=== PATIENT | male | born 1945 | race Two or more races ===

== ENCOUNTER 2022-06-16 17:14 | Inpatient (IN) | payer MEDICARE ==
[~2022-06-16] VITALS: Ht 172.7 cm; Wt 79.8 kg
--- NOTE | 2022-06-16 17:35 | NUR ---
[id number] FROM HOME, GENERALIZED WEAKNESS X 2 DAYS, DIZZINESS STANDING UP AND WALKING AROUND. 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 PLACED ON BED, AAOX4, BREATHING EVEN AND UNLABORED SATURATING AT 98%RA
--- NOTE | 2022-06-16 17:43 | NUR ---
AT BED SIDE
--- NOTE | 2022-06-16 17:56 | NUR ---
BLOOD DRAWN AND SENT TO LAB
--- NOTE | 2022-06-16 18:13 | NUR ---
SWAB FOR COVID19 SENT TO LAB
[2022-06-16 18:30] LABS: BASOPHILS % (AUTO) 0.2 % (0.0-2.0); EOSINOPHILS % (AUTO) 0.2 % (0.0-6.0); LYMPHOCYTES # (AUTO) 1.2 K/uL (0.8-4.8); LYMPHOCYTES % (AUTO) 10.3 % (20.0-44.0); MEAN CORPUSCULAR HGB CONC 33 g/dl (31.0-36.0); MEAN CORPUSCULAR VOLUME 98 fL (80-96); MONOCYTES # (AUTO) 0.6 K/uL (0.1-1.30); MONOCYTES % (AUTO) 5.3 % (2.0-12.0); NEUTROPHILS # (AUTO) 9.9 K/uL (1.8-8.9); PLATELET COUNT (AUTO) 135 K/uL (150-450); WHITE BLOOD COUNT (AUTO) 11.8 K/uL (4.3-11.0)
--- NOTE | 2022-06-16 18:33 | NUR ---
EBENEZER (SISTER) [phone]. Addendum: 06/16/22 at 1834 by CHARLENE EBENEZER (SISTER) CP# [phone].
[2022-06-16] MEDS ORDERED: METO25TA3 PO (18:38)
[2022-06-16] MEDS ORDERED: ASPI-1169 PO (18:38)
[2022-06-16] MEDS ORDERED: SIMV-49 PO (18:38)
[2022-06-16] MEDS ORDERED: LISI10TA29 PO (18:38)
[2022-06-16 18:42] LABS: RED BLOOD CELL COUNT(AUTO) 1.98 MIL/uL (4.5-6.0)
[2022-06-16 18:43] LABS: HEMOGLOBIN 6.4 g/dL (13.5-17.5)
[2022-06-16 18:44] LABS: HEMATOCRIT 19 % (39-51)
[2022-06-16] MEDS ORDERED: LEVE500T9 PO (18:53)
[2022-06-16] MEDS ORDERED: HYDR-4076 PO (18:53)
[2022-06-16 19:02] LABS: CARBON DIOXIDE 23 mmol/L (21-32); CHLORIDE 109 mmol/L (98-107); CREATININE 1.3 mg/dL (0.6-1.3); GLUCOSE 219 mg/dL (74-106); POTASSIUM 3.8 mmol/L (3.5-5.1); SODIUM SERUM 140 mmol/L (136-145); UREA NITROGEN, BLOOD 58 mg/dL (7-18)
[2022-06-16] MEDS ORDERED: IOHEXOL-300 100 ML VIAL IV ONE (19:25)
[2022-06-16 19:48] LABS: IRON, SERUM 153 ug/dl (50-175); TOTAL IRON BINDING CAPACITY 290 ug/dl (250-450)
[2022-06-16 20:02] LABS: FERRITIN 142 ng/mL (8-388)
--- NOTE | 2022-06-16 20:29 | NUR ---
PT WILL BE GOING TO 325-2
[2022-06-16] MEDS ORDERED: PANTOPRAZOLE 80 MG in IV NS 0.9% 500 ML IV ONE (20:30)
[2022-06-16] MEDS ORDERED: PANTOPRAZOLE 40 MG VIAL ONE (20:38)
[2022-06-16 20:54] LABS: LYMPHOCYTES % (MANUAL) 11 % (16-48); MONOCYTES % (MANUAL) 4 % (0-11.0); NEUTROPHILS % (MANUAL) 85 (42-76)
--- NOTE | 2022-06-16 21:17 | NUR ---
REPORT GIVEN TO EMELIA NDIAYE ROOM 325-2 FOR REYNALDO
[2022-06-16 21:18] LABS: BILIRUBIN,DIRECT 0.1 mg/dL (0.0-0.2); BILIRUBIN,TOTAL 0.2 mg/dL (0.2-1.0); TOTAL PROTEIN, SERUM 5.5 g/dL (6.4-8.2)
--- NOTE | 2022-06-16 21:50 | NUR ---
FLIGHT RADIO OFFICERDOORSHAKER NOTE PT TRANSPORTED VIA GURNEY TO UNIT AT THIS TIME. PT FROM HOME ADMITTED TO TELE FROM ER UNDER DR DE ANDA FOR ADMITTING DX OF GI BLEED AND ANEMIA. A/O X4 AND ABLE TO MAKE NEEDS KNOWN. PT STABLE ON ROOM AIR. NO SOB OR S/S OF RESPIRATORY DISTRESS. BREATHING EVEN AND UNLABORED. PT DENIES PAIN OF DISCOMFORT AT THIS TIME. IV ACCESS R HAND 18 GAUGE, INTACT AND PATENT. SKIN IS INTACT. PT IS AMBULATORY WITH ASSIST. WAITING FOR BLOOD TO BE READY FOR BLOOD TRANSFUSION. ORIENTED TO UNIT, STAFF, AND ROOM. PT BELONGINGS ACCOUNTED FOR AND BELONGINGS LIST SIGNED. SAFETY PRECAUTIONS IN PLACE. BED IN LOWEST LOCKED POSITION, HOB ELEVATED, SIDE RAILS UP X2, AND CALL LIGHT AND TABLE WITHIN REACH. ALL NEEDS MET AT THIS TIME.
[2022-06-16] MEDS ORDERED: ZOLPIDEM TARTRATE 5 MG TABLET PO PRN (23:00)
[2022-06-16] MEDS ORDERED: MAGNESIUM HYDROXIDE 30 ML UDC PO PRN (23:00)
[2022-06-16] MEDS ORDERED: ACETAMINOPHEN 325 MG TABLET PO PRN (23:00)
[2022-06-16] MEDS ORDERED: Z GUARD REMEDY 4 OZ OINT TP PRN (23:00)
[2022-06-16] MEDS ORDERED: MORPHINE SULFATE INJ 2 MG/ML DISP.SYRIN IV PRN (23:00)
[2022-06-16] MEDS ORDERED: ONDANSETRON HCL/PF 4 MG/2 ML VIAL IVP PRN (23:00)
[2022-06-16] MEDS ORDERED: MAG HYDROX/AL HYDROX/SIMETH 30 ML UDC PO PRN (23:00)
[2022-06-16] MEDS: IV D5/0.45 NACL 1,000 ML IV PRN (23:39)
[2022-06-17] VITALS (14 sets, daily range): BP systolic 88–112; BP diastolic 48–73
[2022-06-17] MEDS ORDERED: IV NS 0.9% 500 ML BAG IV ONE (01:30)
--- NOTE | 2022-06-17 05:10 | NUR ---
RN NOTE PT STARTED ON BLOOD TRANSFUSION OF 1 UNIT PRBC AT THIS TIME. PT EDUCATION PROVIDED ON RISKS AND BENEFITS OF BLOOD TRANSFUSION. BLOOD CONSENT VERIFIED. PRE TRANSFUSION VS BP 88/57 HR 82 R 20 TEMP 98.3 AND O2 SAT 97% ON ROOM AIR. PICKED UP FROM LAB AND VERIFIED WITH SUPERVISOR FEED HOUSE. NO LEAKAGE, CLOTS, OR DISCOLORATION NOTED. BLOOD VERIFIED AT PTS BEDSIDE WITH ZELDA DURBIN PRIOR TO STARTING. WILL CONTINUE TO MONITOR AND REASSESS FOR ANY TRANSFUSION REACTIONS.
--- NOTE | 2022-06-17 06:45 | NUR ---
HOROLOGIST CLOSING NOTE PT AWAKE IN BED. A/O X4 AND ABLE TO MAKE NEEDS KNOWN. PT STABLE ON ROOM AIR. NO SOB OR S/S OF RESPIRATORY DISTRESS. BREATHING EVEN AND UNLABORED. PT DENIES PAIN OF DISCOMFORT AT THIS TIME. IV ACCESS R HAND 18 GAUGE, INTACT AND PATENT, RUNNING 1 BAG OF PRBC, AND LAC 18 GAUGE RUNNING PROTONIX. ALL DUE MEDS GIVEN ORDERED. SAFETY PRECAUTIONS IN PLACE. BED IN LOWEST LOCKED POSITION, HOB ELEVATED, SIDE RAILS UP X2, AND CALL LIGHT AND TABLE WITHIN REACH. ALL NEEDS MET AT THIS TIME AND WILL ENDORSE TO ONCOMING NURSE FOR REYNALDO.
--- NOTE | 2022-06-17 07:05 | NUR ---
SUPERVISOR PROPELLANT CHARGE LOADING OPENING NOTES RECEIVED PATIENT RESTING IN BED, A/Ox4. ON ROOM AIR, NO S/S OF RESPIRATORY DISTRESS. PATIENT IS ON TELE MONITORING SHOWING SR 80 HR, NO S/S OF CARDIAC DISTRESS OR DISCOMFORT NOTED. PATIENT HAS IV ACCESS L HAND #18G RUNNING PRBC AND L AC RUNNING D5 1/2 NS @ 75 ML/HR, INTACT AND PATENT. PATIENT IS CONTINENT, USES URINAL AND CAN AMBULATE WITH SUPERVISION TO THE BATHROOM. SKIN IS INTACT. SAFETY MEASURES IN PLACE: BED LOCKED AND IN LOWEST POSITION, SIDE RAILS UP x2, CALL LIGHT WITHIN REACH, AND HOB ELEVATED. WILL CONTINUE TO MONITOR.
[2022-06-17 08:55] LABS: BASOPHILS % (AUTO) 0.4 % (0.0-2.0); EOSINOPHILS % (AUTO) 0.6 % (0.0-6.0); LYMPHOCYTES # (AUTO) 2.1 K/uL (0.8-4.8); MEAN CORPUSCULAR HGB CONC 34 g/dl (31.0-36.0); MEAN CORPUSCULAR VOLUME 97 fL (80-96); MONOCYTES # (AUTO) 0.8 K/uL (0.1-1.30); MONOCYTES % (AUTO) 7.3 % (2.0-12.0); NEUTROPHILS # (AUTO) 7.7 K/uL (1.8-8.9); NEUTROPHILS % (AUTO) 71.7 % (43.0-81.0); PLATELET COUNT (AUTO) 113 K/uL (150-450); WHITE BLOOD COUNT (AUTO) 10.8 K/uL (4.3-11.0)
[2022-06-17 09:14] LABS: ALBUMIN 2.7 g/dL (3.4-5.0); BILIRUBIN,DIRECT 0.1 mg/dL (0.0-0.2); BILIRUBIN,TOTAL 0.2 mg/dL (0.2-1.0); CALCIUM, SERUM 7.5 mg/dL (8.5-10.1); CREATININE 1.3 mg/dL (0.6-1.3); MAGNESIUM 2.2 mg/dL (1.8-2.4); PHOSPHORUS 3.3 mg/dL (2.5-4.9); POTASSIUM 3.9 mmol/L (3.5-5.1); TOTAL PROTEIN, SERUM 5.1 g/dL (6.4-8.2)
[2022-06-17 09:37] LABS: HEMATOCRIT 19 % (39-51); HEMOGLOBIN 6.4 g/dL (13.5-17.5); RED BLOOD CELL COUNT(AUTO) 1.92 MIL/uL (4.5-6.0)
[2022-06-17 11:18] LABS: LYMPHOCYTES % (MANUAL) 14 % (16-48); MONOCYTES % (MANUAL) 3 % (0-11.0); NEUTROPHILS % (MANUAL) 83 (42-76)
--- NOTE | 2022-06-17 12:30 | NUR ---
RN NOTES PATIENT COMPLETED 2 UNITS OF BLOOD TRANSFUSION, NO ADVERSE AFFECTS NOTED AND VITALS STABLE THROUGHOUT AND AFTER. WILL CONTINUE TO MONITOR.
[2022-06-17] MEDS: LEVETIRACETAM (250 MG) 250 MG TABLET PO SCH ×2 (12:48→20:41)
[2022-06-17 15:58] LABS: BASOPHILS % (AUTO) 0.4 % (0.0-2.0); EOSINOPHILS % (AUTO) 0.7 % (0.0-6.0); HEMATOCRIT 25 % (39-51); HEMOGLOBIN 8.4 g/dL (13.5-17.5); LYMPHOCYTES # (AUTO) 1.8 K/uL (0.8-4.8); LYMPHOCYTES % (AUTO) 15.1 % (20.0-44.0); MEAN CORPUSCULAR HGB CONC 33 g/dl (31.0-36.0); MEAN CORPUSCULAR VOLUME 98 fL (80-96); MONOCYTES # (AUTO) 0.8 K/uL (0.1-1.30); MONOCYTES % (AUTO) 7.1 % (2.0-12.0); NEUTROPHILS # (AUTO) 8.9 K/uL (1.8-8.9); NEUTROPHILS % (AUTO) 76.7 % (43.0-81.0); PLATELET COUNT (AUTO) 115 K/uL (150-450); RED BLOOD CELL COUNT(AUTO) 2.58 MIL/uL (4.5-6.0); WHITE BLOOD COUNT (AUTO) 11.6 K/uL (4.3-11.0)
--- NOTE | 2022-06-17 18:40 | NUR ---
DAIRY FARM OPERATOR CLOSING NOTES PATIENT RESTING IN BED, A/Ox4. ON ROOM AIR, STABLE NO S/S OF RESPIRATORY DISTRESS. PATIENT IS ON TELE MONITORING SHOWING SR 80 HR, NO S/S OF CARDIAC DISTRESS OR DISCOMFORT NOTED. PATIENT HAS IV ACCESS L HAND #SL AND L AC RUNNING D5 1/2 NS @ 75 ML/HR, INTACT AND PATENT. PATIENT IS CONTINENT, USES URINAL AND CAN AMBULATE WITH SUPERVISION TO THE BATHROOM. SKIN IS INTACT. ALL PRESCRIBED MEDICATION ADMINISTERED. SAFETY MEASURES MAINTAINED: BED LOCKED AND IN LOWEST POSITION, SIDE RAILS UP x2, CALL LIGHT WITHIN REACH, AND HOB ELEVATED. WILL ENDORSE TO NEXT SHIFT ANY REYNALDO.
--- NOTE | 2022-06-17 19:27 | NUR ---
CASING WRINGER OPERATOR OPENING NOTE RECEIVED PT AWAKE IN BED. SISTER EBENEZER AT BEDSIDE. A/O X4 AND ABLE TO MAKE NEEDS KNOWN. PT STABLE ON ROOM AIR. NO SOB OR S/S OF RESPIRATORY DISTRESS. BREATHING EVEN AND UNLABORED. PT DENIES PAIN OF DISCOMFORT AT THIS TIME. IV ACCESS R HAND 18 GAUGE, INTACT AND PATENT, RUNNING D5 1/2 NS @ 75 ML/HR, AND LAC 18 GAUGE SL. SAFETY PRECAUTIONS IN PLACE. BED IN LOWEST LOCKED POSITION, HOB ELEVATED, SIDE RAILS UP X2, AND CALL LIGHT AND TABLE WITHIN REACH. ALL NEEDS MET AT THIS TIME.
[2022-06-18] VITALS: BP 100/63
[2022-06-18 04:00] VITALS: BP 137/71
[2022-06-18 06:32] LABS: BASOPHILS % (AUTO) 0.4 % (0.0-2.0); EOSINOPHILS % (AUTO) 2.2 % (0.0-6.0); HEMATOCRIT 22 % (39-51); HEMOGLOBIN 7.5 g/dL (13.5-17.5); LYMPHOCYTES # (AUTO) 2.3 K/uL (0.8-4.8); LYMPHOCYTES % (AUTO) 24.8 % (20.0-44.0); MEAN CORPUSCULAR HGB CONC 34 g/dl (31.0-36.0); MEAN CORPUSCULAR VOLUME 97 fL (80-96); MONOCYTES # (AUTO) 0.9 K/uL (0.1-1.30); MONOCYTES % (AUTO) 9.8 % (2.0-12.0); NEUTROPHILS # (AUTO) 5.8 K/uL (1.8-8.9); NEUTROPHILS % (AUTO) 62.8 % (43.0-81.0); PLATELET COUNT (AUTO) 108 K/uL (150-450); RED BLOOD CELL COUNT(AUTO) 2.26 MIL/uL (4.5-6.0); WHITE BLOOD COUNT (AUTO) 9.3 K/uL (4.3-11.0)
--- NOTE | 2022-06-18 06:35 | NUR ---
DIRECT SUPPORT STAFF CLOSING NOTE PT AWAKE IN BED. SISTER EBENEZER AT BEDSIDE. A/O X4 AND ABLE TO MAKE NEEDS KNOWN. PERIODS OF FORGETFULNESS, NEEDED FREQUENT REORIENTATION. PT STABLE ON ROOM AIR. NO SOB OR S/S OF RESPIRATORY DISTRESS. BREATHING EVEN AND UNLABORED. PT DENIES PAIN OF DISCOMFORT AT THIS TIME. IV ACCESS R HAND 18 GAUGE, INTACT AND PATENT, RUNNING D5 1/2 NS @ 75 ML/HR, AND LAC 18 GAUGE SL. ALL DUE MEDS GIVEN ORDERED. SAFETY PRECAUTIONS IN PLACE AT ALL TIMES. BED IN LOWEST LOCKED POSITION, HOB ELEVATED, SIDE RAILS UP X2, AND CALL LIGHT AND TABLE WITHIN REACH. ALL NEEDS MET AT THIS TIME AND WILL ENDORSE TO ONCOMING NURSE FOR REYNALDO.
[2022-06-18 06:54] LABS: CALCIUM, SERUM 7.9 mg/dL (8.5-10.1); CHLORIDE 111 mmol/L (98-107); CREATININE 1.1 mg/dL (0.6-1.3); GLUCOSE 129 mg/dL (74-106); MAGNESIUM 2.2 mg/dL (1.8-2.4); PHOSPHORUS 3.4 mg/dL (2.5-4.9); SODIUM SERUM 142 mmol/L (136-145); UREA NITROGEN, BLOOD 26 mg/dL (7-18)
[2022-06-18 07:09] LABS: CARBON DIOXIDE 25 mmol/L (21-32)
--- NOTE | 2022-06-18 07:30 | NUR ---
MARKETING COPYWRITER OPENING NOTES: RECEIVED PATIENT IN BED, AWAKE. ALERT ANAD ORIENTED X 4 AND WITH EPISODES OF FORGETFULLNESS. NEEDS FREQUENT REORIENTATION. NO SOB OR CARDIAC DISTRESS NOTED, ON ROOM AIR AND TOLERATING WELL. PALE IN APPEARANCE NOTED. PATIENT JUST REMOVED HIS IV ACCESS, WITH D5 NS @75ML/HR. SAFETY PRECAUTIONS MAINTAINED: BED LOCKED AND IN LOWEST POSITION. SIDE RAILS UP X2, BED ALARM ON. CALL LIGHT IN EASY REACH FOR HELP. WILL MONITOR PATIENT ACCORDINGLY.
--- NOTE | 2022-06-18 07:35 | NUR ---
RN NOTES: INSERTED IV ACCESS ON LFA g20 INFUSING D5 1/2 NS @75ML/HR WELL. PATIENT TOLERATED WELL.
--- NOTE | 2022-06-18 07:42 | NUR ---
RN NOTES: SEEN AND EXAMINED BY DR ALLEN, WITH NEW ORDERS MADE: CLEAR LIQUIDS STARTING NOW, START GOLYTELY, FOR EGD/COLONOSCOPY TOMORROW, NPO POST MIDNIGHT. ORDERS NOTED ADN CARRIED OUT.
[2022-06-18 08:00] VITALS: BP 99/55
[2022-06-18] MEDS: LEVETIRACETAM (250 MG) 250 MG TABLET PO SCH ×2 (08:47→21:02)
[2022-06-18] MEDS: SIMVASTATIN 20 MG TABLET PO SCH (08:47)
[2022-06-18] MEDS ORDERED: SENNOSIDES/DOCUSATE SODIUM 1 TAB TABLET PO ONE ×2 (09:00→21:00)
[2022-06-18 12:00] VITALS: BP 100/60
[2022-06-18] MEDS ORDERED: PEG 3350/NA SULF,BICARB,CL/KCL 4,000 ML BOTTLE PO SCH (12:00)
[2022-06-18 16:00] VITALS: BP 102/61
--- NOTE | 2022-06-18 17:20 | NUR ---
RN NOTES: PATIENT REQUESTED TO HAVE 2 TABS OF SENNA AT HS TOGETHER WITH ROSY, DR SALGADO MADE AWARE AND OKAY TO HAVE SENNA 2 TABS AT HS. ORDERS NOTED AND CARRIED OUT.
--- NOTE | 2022-06-18 18:57 | NUR ---
JUVENILE CORRECTIONS OFFICER CLOSING NOTES: PATIENT IN BED, AWAKE. ALERT AND ORIENTED X 4 AND WITH EPISODES OF FORGETFULNESS. NEEDS FREQUENT REORIENTATION. NO SOB OR CARDIAC DISTRESS NOTED, ON ROOM AIR AND TOLERATING WELL. PALE IN APPEARANCE NOTED. ON LOGISTICS SOLUTION MANAGER WITH CURRENT READING OF SR AND SR 80'S BPM. ON BOWEL PREP FOR COLONOSCOPY/EGD IN AM. PATIENT NOTED WITH IV ACCESS WITH D5 NS @75ML/HR. SAFETY PRECAUTIONS MAINTAINED: BED LOCKED AND IN LOWEST POSITION. SIDE RAILS UP X2, BED ALARM ON. ENDORSED TO INSULATION CUPOLA OPERATOR FOR REYNALDO.
[2022-06-18 20:00] VITALS: BP 100/60
--- NOTE | 2022-06-18 21:50 | NUR ---
RN REYNALDO NOTE PATIENT IN BED, AWAKE. A/O X 4 ABLE TO MAKE NEEDS KNOWN. PATIENT TO BE NPO AFTER MN FOR COLONOSCOPY. PER PATIENT, HE NO LONGER WANTS TO DRINK THE GOLYTLEY. PATIENT STILL HAS REMAINING 1/3 OF THE BOTTLE. PATIENT STATES "THEY CAN DRINK IT THEMSELVES, I'M NOT DRINKING ANYMORE OF THAT NASTY WATER". WILL NOTIFY . LFA 20 G, PATENT AND INTACT. D5 1/2 NS NOT ON AT THIS TIME PER PATIENT'S REQUEST. SAFETY MEASURES IN PLACE: BED LOCKED AND IN LOWEST POSITION, CALL LIGHT WITHIN REACH, SIDE RAILS UP. WILL MONITOR PATIENT CLOSELY
--- NOTE | 2022-06-18 22:48 | NUR ---
RN NOTE NOTIFIED DR. ALLEN RE PATIENT REFUSING GOLYTLEY. PER MD "I WILL NOT DO THE PROCEDURE IF HE DOES NOT DRINK THE GOLYTLEY AND IF HE IS NOT HAVE CLEAR BOWELS". INFORMED PATIENT REGARDING WHAT MD SAID, PATIENT STATES THAT "THIS IS ONLY HOW MUCH MY BODY CAN TAKE, AND I'M NOT DRINKING ANYMORE I ALREADY DRANK SO MUCH". PATIENT CONTINUES TO HAVE BOWEL MOVEMENTS THAT IS LIGUID AND DARK, NO FORMED STOOL.S.
[2022-06-19 08:00] VITALS: BP 113/66
--- NOTE | 2022-06-19 08:22 | NUR ---
INSIDE SALES ACCOUNT REPRESENTATIVE OPENING NOTE Patient in bed, awake. A/O x 4, able to make needs known; forgetful at times. On room air, breathing evenly and unlabored. No SOB or s/s of distress noted. IV access on RFA #20 infusing D5 1/2 NS at 75 ml/hr. On tele monitoring showing SR, HR on the 70's-80's. Safety precautions in place: bed in low, locked position siderails up x 2, call light within reach. Will continue to monitor.
[2022-06-19] MEDS: SIMVASTATIN 20 MG TABLET PO SCH (10:12)
[2022-06-19] MEDS: LEVETIRACETAM (250 MG) 250 MG TABLET PO SCH ×2 (10:12→21:43)
--- NOTE | 2022-06-19 10:45 | NUR ---
RN TESFAYE Chacon from lab called, patient's blood culture is positive for gram (+) cocci. Glenda Sherwood NP made aware.
[2022-06-19] MEDS: IV D5/0.45 NACL 1,000 ML IV PRN (11:44)
[2022-06-19 12:00] VITALS: BP 97/54
[2022-06-19 13:57] LABS: BASOPHILS % (AUTO) 0.5 % (0.0-2.0); EOSINOPHILS % (AUTO) 1.2 % (0.0-6.0); HEMATOCRIT 22 % (39-51); HEMOGLOBIN 7.4 g/dL (13.5-17.5); LYMPHOCYTES # (AUTO) 1.4 K/uL (0.8-4.8); LYMPHOCYTES % (AUTO) 22.5 % (20.0-44.0); MEAN CORPUSCULAR HGB CONC 34 g/dl (31.0-36.0); MEAN CORPUSCULAR VOLUME 98 fL (80-96); MONOCYTES # (AUTO) 0.6 K/uL (0.1-1.30); MONOCYTES % (AUTO) 9.7 % (2.0-12.0); NEUTROPHILS # (AUTO) 4.1 K/uL (1.8-8.9); NEUTROPHILS % (AUTO) 66.1 % (43.0-81.0); PLATELET COUNT (AUTO) 130 K/uL (150-450); RED BLOOD CELL COUNT(AUTO) 2.22 MIL/uL (4.5-6.0); WHITE BLOOD COUNT (AUTO) 6.2 K/uL (4.3-11.0)
[2022-06-19 14:06] LABS: CALCIUM, SERUM 7.3 mg/dL (8.5-10.1); CREATININE 1.1 mg/dL (0.6-1.3); POTASSIUM 3.4 mmol/L (3.5-5.1)
[2022-06-19] MEDS ORDERED: POTASSIUM CHLORIDE 20 MEQ TAB.PRT.SR PO SCH (16:00)
[2022-06-19] MEDS: POTASSIUM CL. PREMIX PERIPHER. 50 ML IV SCH ×4 (16:04→21:09)
--- NOTE | 2022-06-19 18:50 | NUR ---
RN NOTE Patient brought to OR for EGD and colonoscopy. Will endorse to grain combiner nurse.
[2022-06-19 20:00] VITALS: BP 112/61
--- NOTE | 2022-06-19 20:40 | NUR ---
CARE TEAM ASSISTANT OPENING NOTES: PATIENT CAME BACK FORM ICU S/P EGD AND COLONOSCOPY, PLACED IN BED COMFORTABLY, BED IN LOW POSITION CALL LIGHTS WITHIN REACH, NO COMPLAIN OF PAIN AND DISCOMFORT AT THIS TIME, ON ROOM AIR SATURATING WELL, V/S ARE WITHIN NORMAL LIMIT, ORIENTED TO ROOM REMIND TO USE THE CALL LIGHTS WHEN NEEDED ASSISTANCE WITH ONGOING IV FLUID OF D5 1/2 NSS AT 75ML/HR INFUSING WELL, PATIENT KEPT CLEAN AND DRY ALL NEEDS MET WILL CONTINUE TO MONITOR.
[2022-06-19 22:00] VITALS: BP 112/65
[2022-06-20] VITALS (12 sets, daily range): BP systolic 100–127; BP diastolic 58–78
[2022-06-20 06:04] LABS: BASOPHILS % (AUTO) 0.3 % (0.0-2.0); EOSINOPHILS % (AUTO) 1.6 % (0.0-6.0); LYMPHOCYTES # (AUTO) 1.8 K/uL (0.8-4.8); LYMPHOCYTES % (AUTO) 30.2 % (20.0-44.0); MEAN CORPUSCULAR HGB CONC 34 g/dl (31.0-36.0); MEAN CORPUSCULAR VOLUME 98 fL (80-96); MONOCYTES # (AUTO) 0.5 K/uL (0.1-1.30); MONOCYTES % (AUTO) 9.3 % (2.0-12.0); NEUTROPHILS # (AUTO) 3.4 K/uL (1.8-8.9); NEUTROPHILS % (AUTO) 58.6 % (43.0-81.0); PLATELET COUNT (AUTO) 122 K/uL (150-450); RED BLOOD CELL COUNT(AUTO) 2.06 MIL/uL (4.5-6.0); WHITE BLOOD COUNT (AUTO) 5.8 K/uL (4.3-11.0)
[2022-06-20 06:46] LABS: CALCIUM, SERUM 7.3 mg/dL (8.5-10.1); MAGNESIUM 2.3 mg/dL (1.8-2.4); PHOSPHORUS 3.6 mg/dL (2.5-4.9); POTASSIUM 3.5 mmol/L (3.5-5.1)
--- NOTE | 2022-06-20 06:59 | NUR ---
STEEL POST INSTALLER SUPERVISOR CLOSING NOTES: PATIENT SLEEP IN BED COMFORTABLY AROUSABLE TO VERBAL STIMULI, BED IN LOW POSITION CALL LIGHTS WITHIN REACH NO COMPLAIN OF PAIN AND DISCOMFORT AT THIS TIME , ON ROOM AIR SATURATING WELL, PATIENT IS A/O X 3 WITH EPISODE OF CONFUSION , TELE MONITOR- SR72, AMBULATORY ABLE TO MAKE NEEDS KNOWN, IV LINE AT RFA#20 WITH ONGOING D5 1/2 NS@75ML/HR INFUSING WELL, PATIENT KEPT CLEAN AND DRY ALL NEEDS MET ENDORSE TO INCOMING SHIFT.
--- NOTE | 2022-06-20 07:45 | NUR ---
RETAIL PHARMACIST OPENING NOTES: PATIENT AWAKE IN BED. A/OX3, WITH EPISODES OF CONFUSION, AMBULATORY AND ABLE TO MAKE NEEDS KNOWN. PT ON ROOM AIR SATURATING WELL. NO S/S OF SOB OR ACUTE DISTRESS NOTED AT THE MOMENT. TELE MONITOR READING SR-72, IV LINE AT RFA#20 RUNNING D5 1/2 NS@75ML/HR INFUSING WELL. SAFETY MEASURES IN PLACE - HOB ELEVATED AND LOCKED AT LOWEST POSITION, SIDERAILS UP X2, CALL LIGHT AND TABLE WITHIN REACH; WILL CONT TO MONITOR.
[2022-06-20 07:54] LABS: HEMATOCRIT 20 % (39-51); HEMOGLOBIN 6.9 g/dL (13.5-17.5)
[2022-06-20 09:30] LABS: BAND % (MANUAL) 2 % (0.0-5.0); EOSINOPHILS % (MANUAL) 2 % (0-4); LYMPHOCYTES % (MANUAL) 24 % (16-48); MONOCYTES % (MANUAL) 8 % (0-11.0); NEUTROPHILS % (MANUAL) 64 (42-76)
[2022-06-20] MEDS: LEVETIRACETAM (250 MG) 250 MG TABLET PO SCH ×2 (09:43→20:22)
[2022-06-20] MEDS: SIMVASTATIN 20 MG TABLET PO SCH (09:44)
[2022-06-20] MEDS: FOLIC ACID 1 MG TABLET PO SCH (16:49)
--- NOTE | 2022-06-20 19:30 | NUR ---
ELECTRIC MOTOR REPAIRING SUPERVISOR OPENING NOTES: PATIENT AWAKE IN BED. A/OX3, WITH EPISODES OF CONFUSION, AMBULATORY AND ABLE TO MAKE NEEDS KNOWN. PT ON ROOM AIR SATURATING WELL. NO S/S OF SOB OR ACUTE DISTRESS NOTED AT THE MOMENT. TELE MONITOR READING SR-72, IV LINE AT RFA#20 RUNNING D5 1/2 NS@75ML/HR NOT CONNECTED AT THIS TIME PER PT REQUEST. SAFETY MEASURES IN PLACE - HOB ELEVATED AND LOCKED AT LOWEST POSITION, SIDE RAILS UP X2, CALL LIGHT AND TABLE WITHIN REACH; WILL CONT TO MONITOR.
--- NOTE | 2022-06-20 20:10 | NUR ---
CHANNELER OUTSOLE OPENING NOTES: PATIENT AWAKE IN BED. A/OX3, WITH EPISODES OF CONFUSION, AMBULATORY AND ABLE TO MAKE NEEDS KNOWN. PT ON ROOM AIR SATURATING WELL. NO S/S OF SOB OR ACUTE DISTRESS NOTED AT THE MOMENT. S/P 1 UNIT PRBC TRANSFUSION. TELE MONITOR READING SR-82 WITH INTERMITTENT PAUSES, MADE MD AWARE. IV LINE AT RFA#20 RUNNING D5 1/2 NS@75ML/HR INFUSING WELL. SAFETY MEASURES IN PLACE - HOB ELEVATED AND LOCKED AT LOWEST POSITION, SIDERAILS UP X2, CALL LIGHT AND TABLE WITHIN REACH; ENDORSED TO PM SHIFT.
[2022-06-21] VITALS: BP 113/67
[2022-06-21 04:00] VITALS: BP 130/82
--- NOTE | 2022-06-21 06:58 | NUR ---
NPS CLOSING NOTES: PATIENT AWAKE IN BED. A/OX3 -4, AMBULATORY AND ABLE TO MAKE NEEDS KNOWN. PT ON ROOM AIR SATURATING WELL. NO S/S OF SOB OR ACUTE DISTRESS NOTED AT THE MOMENT. S/P 1 UNIT PRBC TRANSFUSION YESTERDAY. TELE MONITOR READING SR IV LINE AT RFA#20 RUNNING D5 / NS@75ML/HR INFUSING WELL NOT CONNECTED AT THIS TIME PER PT REQUEST. RISK AND BENEFITS EXPLAINED X3 REFUSED X3. SAFETY MEASURES IN PLACE - HOB ELEVATED AND LOCKED AT LOWEST POSITION, SIDE RAILS UP X2, CALL LIGHT AND TABLE WITHIN REACH; ENDORSED TO DAY SHIFT NURSE.
--- NOTE | 2022-06-21 07:17 | NUR ---
GAS MAKER HELPER OPENING NOTES: RECEIVED PATIENT ASLEEP IN BED. A/OX3, ABLE TO MAKE NEEDS KNOWN AND AMBULATORY. PT ON ROOM AIR SATURATING WELL. NO S/S OF SOB OR ACUTE DISTRESS NOTED AT THE MOMENT. TELE MONITOR READING SR-72, IV LINE AT RFA#20, D5 1/2 NS@75ML/HR ON HOLD PER PT REQUEST. PT IS ABLE TO DRINK FLUIDS. SAFETY MEASURES IN PLACE - HOB ELEVATED AND LOCKED AT LOWEST POSITION, SIDERAILS UP X2, CALL LIGHT AND TABLE WITHIN REACH; WILL CONT TO MONITOR.
[2022-06-21 07:20] LABS: BASOPHILS % (AUTO) 0.6 % (0.0-2.0); EOSINOPHILS % (AUTO) 1.9 % (0.0-6.0); HEMATOCRIT 26 % (39-51); HEMOGLOBIN 8.8 g/dL (13.5-17.5); MEAN CORPUSCULAR HGB CONC 34 g/dl (31.0-36.0); MEAN CORPUSCULAR VOLUME 97 fL (80-96); MONOCYTES % (AUTO) 8.8 % (2.0-12.0); NEUTROPHILS % (AUTO) 59.7 % (43.0-81.0); PLATELET COUNT (AUTO) 138 K/uL (150-450); RED BLOOD CELL COUNT(AUTO) 2.69 MIL/uL (4.5-6.0); WHITE BLOOD COUNT (AUTO) 6.6 K/uL (4.3-11.0)
[2022-06-21 07:21] LABS: LYMPHOCYTES # (AUTO) 1.9 K/uL (0.8-4.8); MONOCYTES # (AUTO) 0.6 K/uL (0.1-1.30)
[2022-06-21 08:00] VITALS: BP 121/75
[2022-06-21] MEDS: FOLIC ACID 1 MG TABLET PO SCH (08:16)
[2022-06-21] MEDS: LEVETIRACETAM (250 MG) 250 MG TABLET PO SCH (08:17)
[2022-06-21] MEDS: SIMVASTATIN 20 MG TABLET PO SCH (08:17)
--- NOTE | 2022-06-21 13:55 | NUR ---
DIRECTOR ACCOUNT MANAGEMENTSERVICE CENTER COORDINATOR NOTES: DC ORDERS CARRIED OUT. PT IS AT STABLE CONDITION, VS WNL.NO S/S OF SOB OR ACUTE DISTRESS NOTED AT THIS TIME. DC INSTRUCTIONS GIVEN AT BEDSIDE, PT VERBALIZED UNDERSTANDING AND SIGNED DOCUMENTS TOGETHER WITH BELONGINGS LIST. IV ACCESS, ID BAND AND TELE MONITOR REMOVED. PT IS GOING HOME WITH SISTER EBENEZER VIA PRIVATE CAR. STAFF ESCORTED PT VIA WHEELCHAIR TO THE LOBBY.
== END 2022-06-21 14:00 | disposition home or self-care (01) | DRG 391 ==
LOC: ER 17:23 → TELE 20:48
PROVIDERS: ADMIT Student in an Organized Health Care Education/Training Program; ATTEND Nurse Practitioner Acute Care
PROC: 30233N1 Transfusion of Nonautologous Red Blood Cells into Peripheral Vein, Percutaneous Approach (ICD-10-PCS; 2022-06-16)
PROC: 0DJD8ZZ Inspection of Lower Intestinal Tract, Via Natural or Artificial Opening Endoscopic (ICD-10-PCS; principal; 2022-06-19)
PROC: 0DB68ZX Excision of Stomach, Via Natural or Artificial Opening Endoscopic, Diagnostic (ICD-10-PCS; 2022-06-20)
DX: K29.70 Gastritis, unspecified, without bleeding (principal); N17.0 Acute kidney failure with tubular necrosis; K64.8 Other hemorrhoids; D69.6 Thrombocytopenia, unspecified; E86.0 Dehydration; Z20.822 Contact with and (suspected) exposure to COVID-19; Z79.82 Long term (current) use of aspirin; Z79.899 Other long term (current) drug therapy; E78.5 Hyperlipidemia, unspecified; R79.89 Other specified abnormal findings of blood chemistry; E11.9 Type 2 diabetes mellitus without complications; E87.6 Hypokalemia; E88.09 Other disorders of plasma-protein metabolism, not elsewhere classified; I10 Essential (primary) hypertension; D72.829 Elevated white blood cell count, unspecified; D50.9 Iron deficiency anemia, unspecified
CPT/HCPCS: 36415; 71045-TC; 80048-TC; 80061-TC; 80076-TC; 82728-TC; 83540-TC; 83735-TC; 84100-TC; 84484-TC; 85025-TC; 86850-TC; 87040-TC; 87081-TC; C9113; C9803; G0378; J2704; J3480; J3490; J7030; J7040; J7050; P9016; Q9967